=== PATIENT | male | born 1990 | race Caucasian/White ===

== ENCOUNTER 2016-09-20 05:40 | Emergency (ER) | payer SELFPAY ==
[2016-09-20 05:53] VITALS: BP 132/79
== END 2016-09-20 05:53 | disposition home or self-care (01) ==
LOC: ED 05:40
DX: H10.32 Unspecified acute conjunctivitis, left eye (principal)

== ENCOUNTER 2017-03-14 07:16 | Emergency (ER) | payer SELFPAY ==
[~2017-03-14] VITALS: Ht 172.7 cm; Wt 85.3 kg
[2017-03-14 07:46] VITALS: Ht 172.7 cm; Wt 85.3 kg
[2017-03-14 08:47] LABS: BASOPHIL % 0.5 % (0-2); PLATELET COUNT 357 x10^3mcL (130-400); RED CELL DISTRIBUTION WIDTH 13.6 % (11.5-14.5)
[2017-03-14 08:55] LABS: CALCIUM 8.8 mg/dL (8.5-10.1); CARBON DIOXIDE 26.1 mmol/L (21-32); CHLORIDE SERUM 104 mmol/L (98-107); CREATININE SERUM 0.6 mg/dL (0.7-1.3); GFR1 > 60 mL/min; GLUCOSE SERUM 103 mg/dL (74-106); SODIUM SERUM 138 mmol/L (136-145)
[2017-03-14 08:59] LABS: ALBUMIN 3.9 g/dL (3.4-5.0); ALKALINE PHOSPHATASE 96 U/L (46-116); ALT/SGPT 49 U/L (16-63); AST/SGOT 19 U/L (15-37); BILIRUBIN TOTAL 0.58 mg/dL (0.20-1.00); LIPASE 114 IU/L (73-393); TOTAL PROTEIN, SERUM 7.6 g/dL (6.4-8.2)
[2017-03-14 09:45] VITALS: BP 140/78
== END 2017-03-14 09:45 | disposition home or self-care (01) ==
LOC: ED 07:16
PROVIDERS: Emergency Medicine
DX: R10.84 Generalized abdominal pain (principal); R11.0 Nausea; K92.1 Melena
CPT/HCPCS: 36415; J1885; Q0162

== ENCOUNTER 2017-06-20 19:15 | Emergency (ER) | payer SELFPAY ==
[~2017-06-20] VITALS: Ht 172.7 cm; Wt 83.9 kg
[2017-06-20 19:45] VITALS: Ht 172.7 cm; Wt 83.9 kg
[2017-06-20 21:43] VITALS: BP 140/83
== END 2017-06-20 21:43 | disposition home or self-care (01) ==
LOC: ED 19:15
DX: S93.402A Sprain of unspecified ligament of left ankle, initial encounter (principal); W10.9XXA Fall (on) (from) unspecified stairs and steps, initial encounter; Y93.89 Activity, other specified; Y92.89 Other specified places as the place of occurrence of the external cause; Y99.8 Other external cause status
CPT/HCPCS: J1885; Q0092

== ENCOUNTER 2018-11-27 09:03 | Emergency (ER) | payer OTHER ==
[~2018-11-27] VITALS: Ht 172.7 cm; Wt 92.5 kg
[2018-11-27 09:11] VITALS: Ht 172.7 cm; Wt 92.5 kg
[2018-11-27 10:30] VITALS: BP 147/96
== END 2018-11-27 10:30 | disposition home or self-care (01) ==
LOC: ED 09:03
DX: S90.222A Contusion of left lesser toe(s) with damage to nail, initial encounter (principal); W23.0XXA Caught, crushed, jammed, or pinched between moving objects, initial encounter; Y93.89 Activity, other specified; Y92.89 Other specified places as the place of occurrence of the external cause; Y99.8 Other external cause status

== ENCOUNTER 2018-11-30 08:34 | Emergency (ER) | payer OTHER ==
[~2018-11-30] VITALS: Ht 172.7 cm; Wt 92.5 kg
[2018-11-30 08:37] VITALS: BP 120/81; Ht 172.7 cm; Wt 92.5 kg
== END 2018-11-30 08:50 | disposition home or self-care (01) ==
LOC: ED 08:34
DX: S60.12 Contusion of index finger with damage to nail (principal); X58.XXXD Exposure to other specified factors, subsequent encounter

== ENCOUNTER 2019-07-16 20:18 | Emergency (ER) | payer OTHER ==
[~2019-07-16] VITALS: Ht 172.7 cm; Wt 96.2 kg
[2019-07-16 20:32] VITALS: Ht 172.7 cm; Wt 96.2 kg
[2019-07-16 21:40] VITALS: BP 122/78
== END 2019-07-16 21:40 | disposition home or self-care (01) ==
LOC: ED 20:18
DX: S00.86XA Insect bite (nonvenomous) of other part of head, initial encounter (principal); W57.XXXA Bitten or stung by nonvenomous insect and other nonvenomous arthropods, initial encounter; Y93.89 Activity, other specified; Y92.89 Other specified places as the place of occurrence of the external cause; Y99.8 Other external cause status